=== PATIENT | male | born 1960 | race Caucasian/White ===

== ENCOUNTER 2020-07-30 19:13 | Inpatient (IN) ==
[2020-07-30] MEDS ORDERED: Ondansetron 4 MG/2 ML VIAL IVP PRN (19:26)
[2020-07-30] MEDS ORDERED: Naloxone 0.4 MG/ML INJ IVP PRN (19:26)
[2020-07-30] MEDS ORDERED: Ringers Solution, Lactated 1,000 ML IVC SCH (19:30)
[2020-07-30] MEDS ORDERED: *HR* HYDROmorphone (PF) 1 MG/ML SYRINGE IVP PRN (19:40)
[2020-07-30] MEDS ORDERED: *HR* LORazepam 2 MG/ML VIAL IVP PRN ×3 (19:58)
[2020-07-30] MEDS ORDERED: Piperacillin/Tazobactam 3.375 GM in 0.9 % Sodium Chloride Mini Bag 100 ML IVPB SCH (20:00)
[2020-07-30 21:20] LABS: eGFR For African Americans 29 (> 60); eGFR For Non-African Americans 24 (> 60)
[2020-07-30 21:21] LABS: Troponin I < 0.03 ng/mL (< 0.04)
[2020-07-30] MEDS ORDERED: *HR* OxyCODONE Immed Rel 5 MG TABLET PO PRN (22:46)
[2020-07-30] MEDS ORDERED: *HR* HYDROmorphone PF 0.5 MG/0.5 ML SYRINGE IVP PRN (22:46)
[2020-07-30] MEDS ORDERED: *HR* Midazolam HCl 2 MG/2 ML VIAL ONE (22:57)
[2020-07-30] MEDS ORDERED: *HR* FentaNYL (PF) 100 MCG/2 ML VIAL ONE (22:57)
[2020-07-30] MEDS ORDERED: *HR* PHENYLEPHRINE 1,000 MCG/10 ML SYRINGE IVP ONE (22:58)
[2020-07-30] MEDS ORDERED: *HR* Propofol 200 MG/20 ML VIAL IVP ONE (22:58)
[2020-07-30] MEDS ORDERED: Lidocaine -MPF 2% 2 ML VIAL ONE (22:59)
[2020-07-30] MEDS ORDERED: *HR* Succinylcholine 200 MG/10 ML VIAL IVP ONE (22:59)
[2020-07-30] MEDS ORDERED: *HR* Rocuronium Bromide 50 MG/5 ML VIAL ONE (23:00)
[2020-07-30] MEDS ORDERED: Dexamethasone 4 MG/ML VIAL ONE (23:36)
[2020-07-30] MEDS ORDERED: Ondansetron 4 MG/2 ML VIAL ONE (23:36)
[2020-07-31] MEDS ORDERED: Neostigmine Methylsulfate 3 MG/3 ML SYRINGE ONE (00:23)
[2020-07-31] MEDS ORDERED: *HR* HYDROmorphone (PF) 1 MG/ML SYRINGE IVP PRN (01:51)
[2020-07-31] MEDS ORDERED: Naloxone 0.4 MG/ML INJ IVP PRN (01:51)
[2020-07-31] MEDS ORDERED: Ondansetron 4 MG/2 ML VIAL IVP PRN (01:51)
[2020-07-31] MEDS ORDERED: *HR* LORazepam 2 MG/ML VIAL IVP PRN ×3 (01:51)
[2020-07-31] MEDS ORDERED: Ringers Solution, Lactated 1,000 ML ONE (01:56)
[2020-07-31 02:06] LABS: Basophils # 0.1 K/mcL (0.0-0.2); Basophils % 1.1 %; Hematocrit 43.4 % (37.5-50.1); Hemoglobin 14.1 g/dL (12.9-16.9); Lymphocytes # 0.3 K/mcL (0.6-4.6); Lymphocytes % 5.2 %; Mean Corpuscular HGB Conc 32.5 g/dL (31.6-35.5); Mean Corpuscular Hemoglobin 31.8 pg (28.0-33.3); Mean Platelet Volume 9.4 fL (9.4-12.4); Monocytes # 0.5 K/mcL (0.0-1.3); Monocytes % 8.9 %; Platelet Count 330 K/mcL (140-400); Red Blood Count 4.43 M/mcL (4.19-5.50); Red Cell Distribution Width 12.6 % (11.5-14.5); Segmented Neutrophils % 82.8 %; White Blood Count 5.6 K/mcL (4.3-11.1)
[2020-07-31 02:08] LABS: Neutrophils # 4.6 K/mcL (1.6-8.9)
[2020-07-31 02:22] LABS: BUN/Creatinine Ratio 26 (6-26); Blood Urea Nitrogen 56 mg/dL (8-23); Calcium 7.1 mg/dL (8.6-10.3); Carbon Dioxide 16 mEq/L (23-29); Chloride 113 mEq/L (98-107); Glucose 143 mg/dL (70-105); Magnesium 1.8 mg/dL (1.6-2.6); Osmolality,Calculated 308 (280-300); Phosphorous 4.8 mg/dL (2.7-4.5); Potassium 4.3 mEq/L (3.5-5.1); Sodium 140 mEq/L (136-145); eGFR For African Americans 38 (> 60); eGFR For Non-African Americans 31 (> 60)
[2020-07-31] MEDS: Ringers Solution, Lactated 1,000 ML IVC SCH ×3 (02:22→21:33)
[2020-07-31 02:24] LABS: Troponin I < 0.03 ng/mL (< 0.04)
[2020-07-31 02:27] LABS: Platelet Estimate Normal (Normal)
[2020-07-31] MEDS: Piperacillin/Tazobactam 3.375 GM in 0.9 % Sodium Chloride Mini Bag 100 ML IVPB SCH ×2 (05:30→16:59)
[2020-07-31] MEDS: *HR* LORazepam 0.5 MG TABLET PO SCH ×3 (08:54→21:24)
[2020-07-31] MEDS: MetroNIDAZOLE 500 MG/100 ML 500 MG/100 ML BAG IVPB SCH ×3 (08:54→23:27)
[2020-07-31] MEDS ORDERED: Thiamine (B-1) 100 MG in 0.9 % Sodium Chloride 50 ML IVPB STA (09:54)
[2020-07-31] MEDS: Metoprolol XL (24 HR) Succ 25 MG TAB.ER.24H PO SCH (11:36)
[2020-07-31] MEDS ORDERED: Orphenadrine 60 MG/2 ML VIAL IVP PRN (12:15)
[2020-07-31] MEDS: Acetaminophen IV 1,000 MG/100 ML BAG IVPB SCH ×3 (13:45→23:28)
[2020-07-31] MEDS ORDERED: Chloraseptic Spray 177 ML BOTTLE MM PRN (18:00)
[2020-08-01] MEDS: Piperacillin/Tazobactam 3.375 GM in 0.9 % Sodium Chloride Mini Bag 100 ML IVPB SCH ×3 (05:26→22:34)
[2020-08-01] MEDS: Acetaminophen IV 1,000 MG/100 ML BAG IVPB SCH ×3 (05:54→18:00)
[2020-08-01 05:59] LABS: Hematocrit 38.3 % (37.5-50.1); Mean Corpuscular HGB Conc 32.1 g/dL (31.6-35.5); Mean Corpuscular Hemoglobin 32.6 pg (28.0-33.3); Mean Corpuscular Volume 101.6 fL (83.0-100.0); Mean Platelet Volume 9.6 fL (9.4-12.4); Platelet Count 272 K/mcL (140-400); Red Blood Count 3.77 M/mcL (4.19-5.50); Red Cell Distribution Width 13.1 % (11.5-14.5)
[2020-08-01 06:13] LABS: Hemoglobin 12.3 g/dL (12.9-16.9); White Blood Count 8.9 K/mcL (4.3-11.1)
[2020-08-01 06:21] LABS: Calcium 8.1 mg/dL (8.6-10.3); Magnesium 2.6 mg/dL (1.6-2.6); Phosphorous 3.7 mg/dL (2.7-4.5); Potassium 4.2 mEq/L (3.5-5.1)
[2020-08-01 06:32] LABS: Carcinoembryonic Antigen 0.5 ng/mL (Less than 5.0)
[2020-08-01 06:37] LABS: Lymphocytes # 1.4 K/mcL (0.6-4.6); Monocytes # 0.4 K/mcL (0.0-1.3); Neutrophils # 7.1 K/mcL (1.6-8.9)
[2020-08-01 06:38] LABS: Hepatitis B Surface Antigen Nonreactive (Nonreactive); Platelet Estimate Normal (Normal); Reactive Lymphocytes Present (Not Present)
[2020-08-01 07:08] LABS: HIV-1&2 Antibody & p24 Ag Nonreactive (Nonreactive); Hepatitis C Virus Antibody Nonreactive (Nonreactive)
[2020-08-01] MEDS: Folic Acid 1 MG TABLET PO SCH (08:39)
[2020-08-01] MEDS: Multivit/Ca/Min/Fe/FA 1 TAB TABLET PO SCH (08:40)
[2020-08-01] MEDS: Metoprolol XL (24 HR) Succ 25 MG TAB.ER.24H PO SCH (09:08)
[2020-08-01] MEDS: *HR* LORazepam 0.5 MG TABLET PO SCH ×2 (09:08→14:00)
[2020-08-01] MEDS: Thiamine (B-1) 100 MG TABLET PO SCH (09:08)
[2020-08-01] MEDS: Ringers Solution, Lactated 1,000 ML IVC SCH ×2 (09:09→19:15)
[2020-08-01] MEDS: MetroNIDAZOLE 500 MG/100 ML 500 MG/100 ML BAG IVPB SCH ×2 (09:10→15:37)
[2020-08-01] MEDS: *HR* LORazepam 0.5 MG TABLET SL SCH (20:43)
[2020-08-02] MEDS: Acetaminophen IV 1,000 MG/100 ML BAG IVPB SCH ×4 (00:24→18:10)
[2020-08-02] MEDS: MetroNIDAZOLE 500 MG/100 ML 500 MG/100 ML BAG IVPB SCH ×3 (00:24→16:47)
[2020-08-02 05:35] LABS: Hematocrit 40.3 % (37.5-50.1); Hemoglobin 12.5 g/dL (12.9-16.9); Mean Corpuscular Hemoglobin 31.2 pg (28.0-33.3); Mean Corpuscular Volume 100.5 fL (83.0-100.0); Mean Platelet Volume 9.8 fL (9.4-12.4); Platelet Count 264 K/mcL (140-400); Red Blood Count 4.01 M/mcL (4.19-5.50); Red Cell Distribution Width 13.2 % (11.5-14.5); White Blood Count 11.2 K/mcL (4.3-11.1)
[2020-08-02] MEDS: Piperacillin/Tazobactam 3.375 GM in 0.9 % Sodium Chloride Mini Bag 100 ML IVPB SCH ×3 (05:39→21:35)
[2020-08-02] MEDS: Ringers Solution, Lactated 1,000 ML IVC SCH (05:43)
[2020-08-02 05:53] LABS: BUN/Creatinine Ratio 37 (6-26); Blood Urea Nitrogen 41 mg/dL (8-23); Calcium 8.4 mg/dL (8.6-10.3); Carbon Dioxide 32 mEq/L (23-29); Chloride 111 mEq/L (98-107); Glucose 104 mg/dL (70-105); Magnesium 2.8 mg/dL (1.6-2.6); Osmolality,Calculated 320 (280-300); Potassium 3.7 mEq/L (3.5-5.1); Sodium 150 mEq/L (136-145); eGFR For African Americans > 60 (> 60); eGFR For Non-African Americans > 60 (> 60)
[2020-08-02 06:21] LABS: Lymphocytes # 2.5 K/mcL (0.6-4.6); Monocytes # 0.7 K/mcL (0.0-1.3); Neutrophils # 8.1 K/mcL (1.6-8.9); Reactive Lymphocytes Present (Not Present); Toxic Granulation Present (Not Present)
[2020-08-02 06:22] LABS: Platelet Estimate Normal (Normal)
[2020-08-02] MEDS: Folic Acid 1 MG TABLET PO SCH (08:21)
[2020-08-02] MEDS: Metoprolol XL (24 HR) Succ 25 MG TAB.ER.24H PO SCH (08:21)
[2020-08-02] MEDS: *HR* LORazepam 0.5 MG TABLET SL SCH (08:21)
[2020-08-02] MEDS: Multivit/Ca/Min/Fe/FA 1 TAB TABLET PO SCH (08:21)
[2020-08-02] MEDS: Thiamine (B-1) 100 MG TABLET PO SCH (08:22)
[2020-08-02] MEDS ORDERED: D5% in 0.45% NACL 1,000 ML IVC SCH (14:45)
[2020-08-02 15:26] LABS: BUN/Creatinine Ratio 34 (6-26); Blood Urea Nitrogen 36 mg/dL (8-23); Calcium 8.5 mg/dL (8.6-10.3); Carbon Dioxide 34 mEq/L (23-29); Chloride 110 mEq/L (98-107); Glucose 104 mg/dL (70-105); Osmolality,Calculated 321 (280-300); Potassium 3.6 mEq/L (3.5-5.1); Sodium 151 mEq/L (136-145); eGFR For African Americans > 60 (> 60); eGFR For Non-African Americans > 60 (> 60)
[2020-08-02] MEDS: *HR* LORazepam Oral Conc 2 MG/ML SL SCH ×2 (17:20→21:38)
[2020-08-02 21:02] LABS: BUN/Creatinine Ratio 32 (6-26); Blood Urea Nitrogen 31 mg/dL (8-23); Carbon Dioxide 32 mEq/L (23-29); Chloride 111 mEq/L (98-107); Glucose 108 mg/dL (70-105); Osmolality,Calculated 319 (280-300); Potassium 3.3 mEq/L (3.5-5.1); Sodium 151 mEq/L (136-145); eGFR For African Americans > 60 (> 60); eGFR For Non-African Americans > 60 (> 60)
[2020-08-03] MEDS: MetroNIDAZOLE 500 MG/100 ML 500 MG/100 ML BAG IVPB SCH ×3 (00:15→16:25)
[2020-08-03] MEDS: Acetaminophen IV 1,000 MG/100 ML BAG IVPB SCH ×4 (00:20→16:23)
[2020-08-03 04:31] LABS: Basophils % 0.1 %; Eosinophils # 0.1 K/mcL (0.0-0.6); Eosinophils % 0.8 %; Hematocrit 39.3 % (37.5-50.1); Hemoglobin 12.2 g/dL (12.9-16.9); Immature Granulocytes % 5.5 % (0-4); Lymphocytes # 1.7 K/mcL (0.6-4.6); Lymphocytes % 13.5 %; Mean Corpuscular Hemoglobin 31.3 pg (28.0-33.3); Mean Corpuscular Volume 100.8 fL (83.0-100.0); Mean Platelet Volume 10.1 fL (9.4-12.4); Neutrophils # 8.9 K/mcL (1.6-8.9); Platelet Count 279 K/mcL (140-400); Red Cell Distribution Width 13.2 % (11.5-14.5); Segmented Neutrophils % 72.1 %; White Blood Count 12.4 K/mcL (4.3-11.1)
[2020-08-03 04:50] LABS: BUN/Creatinine Ratio 28 (6-26); Blood Urea Nitrogen 28 mg/dL (8-23); Calcium 8.1 mg/dL (8.6-10.3); Carbon Dioxide 33 mEq/L (23-29); Chloride 111 mEq/L (98-107); Glucose 137 mg/dL (70-105); Magnesium 2.3 mg/dL (1.6-2.6); Osmolality,Calculated 320 (280-300); Potassium 3.3 mEq/L (3.5-5.1); Sodium 151 mEq/L (136-145); eGFR For African Americans > 60 (> 60); eGFR For Non-African Americans > 60 (> 60)
[2020-08-03 04:55] LABS: Platelet Estimate Normal (Normal)
[2020-08-03] MEDS: Piperacillin/Tazobactam 3.375 GM in 0.9 % Sodium Chloride Mini Bag 100 ML IVPB SCH ×3 (06:26→21:08)
[2020-08-03] MEDS: Folic Acid 1 MG TABLET PO SCH (08:28)
[2020-08-03] MEDS: *HR* LORazepam Oral Conc 2 MG/ML SL SCH ×3 (08:28→21:08)
[2020-08-03] MEDS: Metoprolol XL (24 HR) Succ 25 MG TAB.ER.24H PO SCH (08:29)
[2020-08-03] MEDS: Thiamine (B-1) 100 MG TABLET PO SCH (08:29)
[2020-08-03] MEDS: Multivit/Ca/Min/Fe/FA 1 TAB TABLET PO SCH (08:29)
[2020-08-03] MEDS: D5% in 0.2% NACL w KCl 1,000 ML IVC SCH ×2 (09:12→16:25)
[2020-08-03 15:01] LABS: BUN/Creatinine Ratio 23 (6-26); Blood Urea Nitrogen 21 mg/dL (8-23); Carbon Dioxide 30 mEq/L (23-29); Chloride 106 mEq/L (98-107); Glucose 178 mg/dL (70-105); Osmolality,Calculated 309 (280-300); Sodium 146 mEq/L (136-145); eGFR For African Americans > 60 (> 60); eGFR For Non-African Americans > 60 (> 60)
[2020-08-03 20:22] LABS: BUN/Creatinine Ratio 18 (6-26); Blood Urea Nitrogen 16 mg/dL (8-23); Calcium 7.6 mg/dL (8.6-10.3); Carbon Dioxide 30 mEq/L (23-29); Chloride 105 mEq/L (98-107); Glucose 134 mg/dL (70-105); Osmolality,Calculated 295 (280-300); Potassium 3.2 mEq/L (3.5-5.1); Sodium 141 mEq/L (136-145); eGFR For African Americans > 60 (> 60); eGFR For Non-African Americans > 60 (> 60)
[2020-08-03 22:52] LABS: BUN/Creatinine Ratio 19 (6-26); Blood Urea Nitrogen 14 mg/dL (8-23); Calcium 7.2 mg/dL (8.6-10.3); Carbon Dioxide 25 mEq/L (23-29); Chloride 106 mEq/L (98-107); Glucose 152 mg/dL (70-105); Osmolality,Calculated 291 (280-300); Potassium 3.1 mEq/L (3.5-5.1); Sodium 139 mEq/L (136-145); eGFR For African Americans > 60 (> 60); eGFR For Non-African Americans > 60 (> 60)
[2020-08-04] MEDS: MetroNIDAZOLE 500 MG/100 ML 500 MG/100 ML BAG IVPB SCH ×4 (00:28→23:22)
[2020-08-04] MEDS: Acetaminophen IV 1,000 MG/100 ML BAG IVPB SCH ×2 (00:28→05:35)
[2020-08-04 03:20] LABS: Hematocrit 39.6 % (37.5-50.1); Hemoglobin 12.8 g/dL (12.9-16.9); Mean Corpuscular HGB Conc 32.3 g/dL (31.6-35.5); Mean Corpuscular Hemoglobin 31.9 pg (28.0-33.3); Mean Corpuscular Volume 98.8 fL (83.0-100.0); Mean Platelet Volume 10.4 fL (9.4-12.4); Platelet Count 305 K/mcL (140-400); Red Blood Count 4.01 M/mcL (4.19-5.50); Red Cell Distribution Width 12.9 % (11.5-14.5)
[2020-08-04 03:22] LABS: White Blood Count 19.1 K/mcL (4.3-11.1)
[2020-08-04 03:37] LABS: Lymphocytes # 2.7 K/mcL (0.6-4.6); Neutrophils # 16.4 K/mcL (1.6-8.9); Platelet Estimate Normal (Normal); Reactive Lymphocytes Present (Not Present); Toxic Granulation Present (Not Present)
[2020-08-04] MEDS: D5% in 0.2% NACL w KCl 1,000 ML IVC SCH (05:26)
[2020-08-04] MEDS: Piperacillin/Tazobactam 3.375 GM in 0.9 % Sodium Chloride Mini Bag 100 ML IVPB SCH ×3 (05:33→21:23)
[2020-08-04] MEDS: Thiamine (B-1) 100 MG TABLET PO SCH (08:21)
[2020-08-04] MEDS: Metoprolol XL (24 HR) Succ 25 MG TAB.ER.24H PO SCH (08:21)
[2020-08-04] MEDS: Multivit/Ca/Min/Fe/FA 1 TAB TABLET PO SCH (08:21)
[2020-08-04] MEDS: Folic Acid 1 MG TABLET PO SCH (08:21)
[2020-08-04] MEDS: *HR* LORazepam Oral Conc 2 MG/ML SL SCH ×3 (08:26→21:23)
[2020-08-04 08:33] LABS: Albumin 2.3 g/dL (3.5-5.7); Albumin/Globulin Ratio 0.9 (1.1-2.2); Bilirubin,Direct 0.4 mg/dL (0.0-0.2); Bilirubin,Indirect 0.5 mg/dL (0.0-1.0); Bilirubin,Total 0.9 mg/dL (0.3-1.0); Globulin 2.5 g/dL (2.4-3.5); Total Protein 4.8 g/dL (6.4-8.9)
[2020-08-04] MEDS ORDERED: *HR* OxyCODONE Immed Rel 5 MG TABLET PO PRN (08:57)
[2020-08-04] MEDS ORDERED: Acetaminophen 325 MG TABLET PO PRN (08:57)
[2020-08-04 10:18] LABS: AFP Tumor Marker Non-Pregnant 2 ng/mL (0-9); Cancer Antigen-GI (CA 19-9) 6 U/mL (0-37)
[2020-08-05] MEDS: Piperacillin/Tazobactam 3.375 GM in 0.9 % Sodium Chloride Mini Bag 100 ML IVPB SCH ×3 (05:29→22:01)
[2020-08-05 05:51] LABS: Basophils % 0.1 %; Eosinophils # 0.2 K/mcL (0.0-0.6); Hemoglobin 12.7 g/dL (12.9-16.9); Immature Granulocytes % 7.5 % (0-4); Lymphocytes % 8.2 %; Mean Corpuscular HGB Conc 32.6 g/dL (31.6-35.5); Mean Corpuscular Hemoglobin 32.1 pg (28.0-33.3); Mean Corpuscular Volume 98.5 fL (83.0-100.0); Monocytes % 4.3 %; Platelet Count 343 K/mcL (140-400); Red Blood Count 3.96 M/mcL (4.19-5.50); Red Cell Distribution Width 12.8 % (11.5-14.5); Segmented Neutrophils % 78.9 %; White Blood Count 22.5 K/mcL (4.3-11.1)
[2020-08-05 06:08] LABS: Lymphocytes # 1.9 K/mcL (0.6-4.6); Neutrophils # 17.8 K/mcL (1.6-8.9)
[2020-08-05 06:34] LABS: BUN/Creatinine Ratio 13 (6-26); Blood Urea Nitrogen 10 mg/dL (8-23); Calcium 7.5 mg/dL (8.6-10.3); Carbon Dioxide 27 mEq/L (23-29); Chloride 103 mEq/L (98-107); Glucose 129 mg/dL (70-105); Magnesium 1.8 mg/dL (1.6-2.6); Osmolality,Calculated 283 (280-300); Potassium 3.1 mEq/L (3.5-5.1); Sodium 136 mEq/L (136-145); eGFR For African Americans > 60 (> 60); eGFR For Non-African Americans > 60 (> 60)
[2020-08-05 06:37] LABS: Reactive Lymphocytes Present (Not Present); Toxic Granulation Present (Not Present)
[2020-08-05 06:38] LABS: Platelet Estimate Normal (Normal)
[2020-08-05] MEDS: MetroNIDAZOLE 500 MG/100 ML 500 MG/100 ML BAG IVPB SCH ×3 (07:35→23:23)
[2020-08-05] MEDS: Metoprolol XL (24 HR) Succ 25 MG TAB.ER.24H PO SCH (07:36)
[2020-08-05] MEDS: Folic Acid 1 MG TABLET PO SCH (07:36)
[2020-08-05] MEDS: Thiamine (B-1) 100 MG TABLET PO SCH (07:36)
[2020-08-05] MEDS: Multivit/Ca/Min/Fe/FA 1 TAB TABLET PO SCH (07:36)
[2020-08-05] MEDS ORDERED: Potassium Chloride Elixir 20 MEQ/15 ML UDC PO ONE (08:03)
[2020-08-06 01:54] LABS: Basophils % 0.2 %; Eosinophils # 0.2 K/mcL (0.0-0.6); Eosinophils % 0.8 %; Hematocrit 38.6 % (37.5-50.1); Hemoglobin 12.6 g/dL (12.9-16.9); Immature Granulocytes % 6.2 % (0-4); Lymphocytes # 1.9 K/mcL (0.6-4.6); Lymphocytes % 8.2 %; Mean Corpuscular HGB Conc 32.6 g/dL (31.6-35.5); Mean Corpuscular Hemoglobin 32.5 pg (28.0-33.3); Mean Corpuscular Volume 99.5 fL (83.0-100.0); Monocytes # 1.1 K/mcL (0.0-1.3); Monocytes % 4.8 %; Platelet Count 408 K/mcL (140-400); Red Blood Count 3.88 M/mcL (4.19-5.50); Red Cell Distribution Width 12.9 % (11.5-14.5); Segmented Neutrophils % 79.8 %; White Blood Count 23.1 K/mcL (4.3-11.1)
[2020-08-06 01:57] LABS: Basophils # 0.1 K/mcL (0.0-0.2); Neutrophils # 18.4 K/mcL (1.6-8.9)
[2020-08-06 02:08] LABS: BUN/Creatinine Ratio 15 (6-26); Blood Urea Nitrogen 11 mg/dL (8-23); Calcium 7.5 mg/dL (8.6-10.3); Carbon Dioxide 23 mEq/L (23-29); Chloride 105 mEq/L (98-107); Glucose 122 mg/dL (70-105); Magnesium 1.9 mg/dL (1.6-2.6); Osmolality,Calculated 283 (280-300); Potassium 3.2 mEq/L (3.5-5.1); Sodium 136 mEq/L (136-145); eGFR For African Americans > 60 (> 60); eGFR For Non-African Americans > 60 (> 60)
[2020-08-06 02:21] LABS: Reactive Lymphocytes Present (Not Present); Toxic Granulation Present (Not Present)
[2020-08-06] MEDS: Piperacillin/Tazobactam 3.375 GM in 0.9 % Sodium Chloride Mini Bag 100 ML IVPB SCH ×3 (05:38→20:38)
[2020-08-06] MEDS: Folic Acid 1 MG TABLET PO SCH (08:01)
[2020-08-06] MEDS: MetroNIDAZOLE 500 MG/100 ML 500 MG/100 ML BAG IVPB SCH (08:02)
[2020-08-06] MEDS: Metoprolol XL (24 HR) Succ 25 MG TAB.ER.24H PO SCH (08:02)
[2020-08-06] MEDS: Thiamine (B-1) 100 MG TABLET PO SCH (08:02)
[2020-08-06] MEDS: Multivit/Ca/Min/Fe/FA 1 TAB TABLET PO SCH (08:02)
[2020-08-06] MEDS ORDERED: Potassium Chloride Elixir 20 MEQ/15 ML UDC PO ONE (08:04)
[2020-08-06] MEDS: Fluconazole 400 MG/200 ML 400 MG/200 ML BAG IVPB SCH (12:11)
[2020-08-06] MEDS: Vancomycin 1,500 MG/265 ML IV.SOLN IVPB SCH ×2 (12:12→20:38)
[2020-08-06] MEDS: *HR* Enoxaparin 40 MG/0.4 ML SYRINGE SQ SCH (13:12)
[2020-08-07 03:11] LABS: Basophils # 0.1 K/mcL (0.0-0.2); Basophils % 0.7 %; Eosinophils # 0.1 K/mcL (0.0-0.6); Eosinophils % 0.7 %; Lymphocytes # 1.6 K/mcL (0.6-4.6); Lymphocytes % 8.7 %; Mean Corpuscular HGB Conc 31.4 g/dL (31.6-35.5); Mean Corpuscular Hemoglobin 31.3 pg (28.0-33.3); Mean Corpuscular Volume 99.4 fL (83.0-100.0); Mean Platelet Volume 10.3 fL (9.4-12.4); Monocytes # 1.2 K/mcL (0.0-1.3); Monocytes % 6.6 %; Platelet Count 414 K/mcL (140-400); Red Blood Count 3.52 M/mcL (4.19-5.50); Red Cell Distribution Width 12.8 % (11.5-14.5); Segmented Neutrophils % 78.3 %; White Blood Count 17.8 K/mcL (4.3-11.1)
[2020-08-07 03:20] LABS: BUN/Creatinine Ratio 14 (6-26); Blood Urea Nitrogen 9 mg/dL (8-23); Calcium 7.4 mg/dL (8.6-10.3); Carbon Dioxide 22 mEq/L (23-29); Chloride 105 mEq/L (98-107); Glucose 105 mg/dL (70-105); Osmolality,Calculated 277 (280-300); Potassium 3.2 mEq/L (3.5-5.1); Sodium 134 mEq/L (136-145); eGFR For African Americans > 60 (> 60); eGFR For Non-African Americans > 60 (> 60)
[2020-08-07] MEDS: *HR* Enoxaparin 40 MG/0.4 ML SYRINGE SQ SCH (05:52)
[2020-08-07] MEDS: Piperacillin/Tazobactam 3.375 GM in 0.9 % Sodium Chloride Mini Bag 100 ML IVPB SCH (05:52)
[2020-08-07] MEDS: Multivit/Ca/Min/Fe/FA 1 TAB TABLET PO SCH (08:01)
[2020-08-07] MEDS: Metoprolol XL (24 HR) Succ 25 MG TAB.ER.24H PO SCH (08:02)
[2020-08-07] MEDS: Folic Acid 1 MG TABLET PO SCH (08:02)
[2020-08-07] MEDS: Fluconazole 400 MG/200 ML 400 MG/200 ML BAG IVPB SCH (08:02)
[2020-08-07] MEDS: Thiamine (B-1) 100 MG TABLET PO SCH (08:02)
[2020-08-07] MEDS: Vancomycin 1,500 MG/265 ML IV.SOLN IVPB SCH (08:53)
[2020-08-07 10:44] VITALS: BP 123/78
[2020-08-07 12:12] LABS: Aspergillus fumigatus IgE 0.25 kU/L (<=0.34)
[2020-08-07 18:35] LABS: A.galactomannan Ag Index 0.04
== END 2020-08-07 14:53 | disposition home or self-care (01) | DRG 710 ==
LOC: 3BNU → SUATTDRO 19:22 → OBSVTOIN 19:22 → 2NNU 21:27 → 3ANU 08-04 09:20
PROVIDERS: ADMIT Internal Medicine; ATTEND Internal Medicine